=== PATIENT | female | born 1935 | race Two or more races ===

== ENCOUNTER 2023-11-11 19:18 | Inpatient (IN) | payer MEDICAID ==
[~2023-11-11] VITALS: Ht 149.9 cm; Wt 54.7 kg
[2023-11-11 19:36] LABS: COVID AG,FIA SOURCE NASAL SWAB
[2023-11-11 19:51] LABS: SARS-COV2 (COVID) ANTIGEN,FIA Negative (Negative)
[2023-11-11 19:57] LABS: INFLUENZA TYPE A NEGATIVE FOR TYPE A (NEGATIVE); INFLUENZA TYPE B NEGATIVE FOR TYPE B (NEGATIVE)
[2023-11-11 20:04] LABS: BASOPHILS % (AUTO) 0.2 % (0.0-2.0); EOSINOPHILS % (AUTO) 0.1 % (1.0-6.0); HEMATOCRIT 36.5 % (36-46); HEMOGLOBIN 12.7 g/dL (12.0-16.0); LYMPHOCYTES # (AUTO) 1.7 K/uL (1.0-4.8); MEAN CORPUSCULAR HEMOGLOBIN 32.6 pg (26.0-34.0); MEAN CORPUSCULAR HGB CONC 34.8 G/dL (31.0-37.0); MEAN CORPUSCULAR VOLUME 94 fL (80-100); MONOCYTES # (AUTO) 1.6 K/uL (0.1-1.0); MONOCYTES % (AUTO) 12.9 % (2.0-9.0); NEUTROPHILS # (AUTO) 9.5 K/uL (1.8-7.7); NEUTROPHILS % (AUTO) 73.8 % (40.0-70.0); PLATELET COUNT (AUTO) 184 K/uL (150-450); WHITE BLOOD COUNT (AUTO) 12.8 K/uL (4.5-11.0)
[2023-11-11 20:22] LABS: ALBUMIN 3.3 g/dL (3.4-5.0); BILIRUBIN,TOTAL 0.8 mg/dL (0.1-1.0); CREATININE 1.45 mg/dL (0.60-1.30); POTASSIUM 4.6 mmol/L (3.5-5.1); TOTAL PROTEIN, SERUM 7.2 g/dL (6.4-8.2)
[2023-11-11 20:24] LABS: TROPONIN I-HIGH SENSITIVITY 13 ng/L (<51)
[2023-11-11] MEDS ORDERED: ALBUTEROL SULFATE 2.5 MG/0.5 ML NEB SOLUTION NEB PRN (21:15)
[2023-11-11] MEDS ORDERED: ONDANSETRON HCL 4 MG/2 ML VIAL IVP PRN (21:15)
[2023-11-11] MEDS ORDERED: ACETAMINOPHEN 325 MG TABLET PO PRN (21:15)
[2023-11-11] MEDS: ALBUTEROL SULFATE 2.5 MG/0.5 ML NEB SOLUTION NEB ONE (21:29)
[2023-11-11 21:30] VITALS: PULSE 76; RESP 20; O2SAT 88
[2023-11-11] MEDS: MethylPREDNISolone SOD SUCC 125 MG/2 ML VIAL IVP ONE (21:30)
[2023-11-11] MEDS: IPRATROPIUM BROMIDE 0.5 MG/2.5 ML NEB SOLUTION NEB ONE (21:30)
[2023-11-11] MEDS ORDERED: MONT-35 PO (23:19)
[2023-11-11] MEDS ORDERED: APIX5TAB PO (23:19)
[2023-11-11] MEDS ORDERED: CHLO50TA PO (23:19)
[2023-11-11] MEDS: AmLODIPine BESYLATE 5 MG TABLET PO SCH (23:24)
[2023-11-11] MEDS: SODIUM CHLORIDE 0.9% 1,000 ML IV ONE (23:24)
[2023-11-11] MEDS: AZITHROMYCIN 500 MG/NS 250 ML IV SCH (23:25)
[2023-11-11] MEDS ORDERED: IRBE300T26 PO (23:28)
[2023-11-12] VITALS (7 sets, daily range): BP systolic 141–178; BP diastolic 59–71; PULSE 65–74; RESP 18–19; TEMP 97.1–98.2; O2SAT 99
[2023-11-12] MEDS: HEPARIN SODIUM,PORCINE 5,000 UNITS/ML VIAL SQ SCH (00:23)
[2023-11-12] MEDS: MethylPREDNISolone SOD SUCC 125 MG/2 ML VIAL IVP SCH (02:01)
[2023-11-12 05:14] LABS: APPEARANCE,URINE CLEAR (CLEAR); BILIRUBIN,URINE NEGATIVE (NEGATIVE); COLOR,URINE LIGHT YELLOW (YELLOW); GLUCOSE, URINE (UA) NEGATIVE (NEGATIVE); KETONES,URINE NEGATIVE (NEGATIVE); LEUKOCYTE ESTERASE ,URINE SMALL (NEGATIVE); NITRATE,URINE NEGATIVE (NEGATIVE); OCCULT BLOOD,URINE NEGATIVE (NEGATIVE); PH,URINE 6.5 (5.0-8.0); PROTEIN,URINE NEGATIVE (NEGATIVE); SPECIFIC GRAVITIY, URINE 1.015 (1.003-1.030); UROBILINOGEN,URINE <=1.0 mg/dL (<=1.0)
[2023-11-12 05:17] LABS: CREATININE,URINE RANDOM 115.7 mg/dL (30.0-125.0); POTASSIUM,URINE RANDOM 68 mmol/L (12-75); SODIUM,URINE RANDOM 20 mmol/l (20-110); UREA NITROGEN,URINE RANDOM 742 mg/dL (350-1000)
[2023-11-12 05:29] LABS: BACTERIA,URINE None Seen /HPF (None Seen); RBC,URINE None Seen /HPF (0-2); SQUAMOUS EPITHELIAL CELL,UR Few /LPF (None Seen)
[2023-11-12 06:55] LABS: CALCIUM, TOTAL 8.3 mg/dL (8.8-10.5); CREATININE 1.21 mg/dL (0.60-1.30); POTASSIUM 4.1 mmol/L (3.5-5.1)
[2023-11-12] MEDS: FAMOTIDINE 20 MG TABLET PO SCH (09:05)
[2023-11-12] MEDS: DOCUSATE SODIUM 100 MG CAPSULE PO SCH (09:05)
[2023-11-12] MEDS: CloNIDine HCL 0.1 MG TABLET PO PRN (13:02)
[2023-11-12] MEDS ORDERED: SODIUM CHLORIDE 0.9% 250 ML IV ONE (23:41)
[2023-11-13 00:45] VITALS: RESP 18
[2023-11-13 01:15] VITALS: RESP 18
[2023-11-13 03:54] VITALS: BP 158/76; PULSE 68; RESP 18; TEMP 98.9
[2023-11-13 06:48] LABS: BASOPHILS % (AUTO) 0.1 % (0.0-2.0); EOSINOPHILS % (AUTO) 0 % (1.0-6.0); HEMATOCRIT 35.9 % (36-46); HEMOGLOBIN 12.3 g/dL (12.0-16.0); LYMPHOCYTES # (AUTO) 0.9 K/uL (1.0-4.8); LYMPHOCYTES % (AUTO) 6.5 % (22.0-44.0); MEAN CORPUSCULAR HEMOGLOBIN 32.3 pg (26.0-34.0); MEAN CORPUSCULAR HGB CONC 34.4 G/dL (31.0-37.0); MEAN CORPUSCULAR VOLUME 94 fL (80-100); MONOCYTES # (AUTO) 0.5 K/uL (0.1-1.0); MONOCYTES % (AUTO) 3.5 % (2.0-9.0); NEUTROPHILS # (AUTO) 12.2 K/uL (1.8-7.7); PLATELET COUNT (AUTO) 183 K/uL (150-450); RED BLOOD CELL COUNT(AUTO) 3.82 MIL/uL (4.00-5.20); RED CELL DISTRIBUTION WIDTH 13.9 % (11.5-14.5); WHITE BLOOD COUNT (AUTO) 13.6 K/uL (4.5-11.0)
[2023-11-13 07:07] LABS: CALCIUM, TOTAL 8.2 mg/dL (8.8-10.5); CREATININE 0.97 mg/dL (0.60-1.30); POTASSIUM 3.7 mmol/L (3.5-5.1)
[2023-11-13 07:12] LABS: NEUTROPHILS % (AUTO) 89.9 % (40.0-70.0)
[2023-11-13 07:24] VITALS: BP 135/61; PULSE 62; RESP 18; TEMP 98.2
[2023-11-13] MEDS ORDERED: BENZONATATE 100 MG CAPSULE PO PRN (11:15)
[2023-11-13] MEDS: BENZONATATE 100 MG CAPSULE PO PRN (11:19)
[2023-11-13 11:51] VITALS: BP 136/55; PULSE 65; RESP 18; TEMP 98.1
[2023-11-13 15:28] VITALS: BP 130/68; PULSE 85; RESP 18; TEMP 98
== END 2023-11-13 15:20 | disposition home or self-care (01) | DRG 140 ==
LOC: EMS 19:19 → AHU 21:28 → 5S 22:46
PROVIDERS: ADMIT Internal Medicine; ATTEND Internal Medicine
DX: J44.1 Chronic obstructive pulmonary disease with (acute) exacerbation (principal); J96.00 Acute respiratory failure, unspecified whether with hypoxia or hypercapnia; E87.1 Hypo-osmolality and hyponatremia; E86.0 Dehydration; Z20.822 Contact with and (suspected) exposure to COVID-19; I10 Essential (primary) hypertension; N28.9 Disorder of kidney and ureter, unspecified; E78.00 Pure hypercholesterolemia, unspecified
CPT/HCPCS: 71045; 80048; 80053; 81001; 82550; 82570; 83880; 83930; 84133; 84300; 84484; 84540; 85025; 87804; 93005; 94640; 97116; 97162; 97530; 99285; J0456; J1644; J2930; J7050; 36415-L1; 36415-TC; J7613